=== PATIENT | female | born 1960 | race African-American/Black ===

== ENCOUNTER 2016-09-08 20:29 | Inpatient (IN) | payer MEDICAID ==
--- NOTE | 2016-09-08 21:30 | EDPRACDOC ---
- General Information Stated Complaint: UNRESPONSIVE Time Seen by Provider: 09/08/16 20:40 Information Source: [facility], [employer] Mode Of Arrival: Ambulance Home Medications: Home Medications Acetaminophen [Mapap] 650 mg PO Q6H PRN 02/29/16 Ascorbic Acid [Vitamin C] 500 mg PO BID 02/29/16 Aspirin (Enteric Coated) [Halfprin] 81 mg PO DAILY 02/29/16 Baclofen 20 mg PO QID 02/29/16 Calcium Carbonate/Vitamin D3 [Caltrate w/ Vit D Tab (600mg/400IU)] 1 tab PO BID 02/29/16 Cyanocobalamin (Vitamin B-12) [Vitamin B-12] 1,000 mcg SL WEEKLY 02/29/16 Diphenhydramine [Benadryl] 50 mg PO BID PRN 02/29/16 Docusate Sodium [Colace] 100 mg PO DAILY 02/29/16 Efavirenz/Emtricitab/Tenofovir [Atripla Tablet] 1 tab PO QHS 02/29/16 Ferrous Sulfate [Iron] 325 mg PO BID 02/29/16 Folic Acid 1 mg PO DAILY 02/29/16 Gabapentin [Neurontin] 300 mg PO BID 02/29/16 Gemfibrozil [Lopid] 600 mg PO BID 02/29/16 Lactulose [Enulose] 30 ml PO QHS 02/29/16 Multivitamin [One Daily Multivitamin] 1 tab PO DAILY 02/29/16 Pantoprazole Sodium [Protonix] 40 mg PO BID 02/29/16 Polyethylene Glycol 3350 [Miralax] 17 gm PO DAILY PRN 02/29/16 Ramelteon [Rozerem] 8 mg PO QHS 02/29/16 Sennosides [Senna] 8.6 mg PO DAILY 02/29/16 Valacyclovir HCl [Valtrex] 500 mg PO DAILY 02/29/16 Duloxetine [Cymbalta] 30 mg PO DAILY 03/21/16 Tramadol HCl 50 mg PO Q4H PRN 03/21/16 Solifenacin Succinate [Vesicare] 10 mg PO DAILY 04/01/16 Allergies/Adverse Reactions: Allergies Allergy/AdvReac Type Severity Reaction Status Date / Time amoxicillin Allergy Unknown Verified 03/21/16 08:57 ceftriaxone Allergy Unknown Verified 03/21/16 08:57 - History of Present Illness Onset: today Exact Onset of Symptoms: Unknown HPI: EMS WAS CALLED TO [place] DUE TO ALTERED MENTAL STATUS. EMS SAID THAT SHE HAS BEEN SLEEPING ALL DAY. SHE IS UNABLE TO GIVE ANY HX. THERE IS NO FAMILY WITH PT, SO I DON'T KNOW HER NL MENTAL STATUS. PER MAR, PT IS GETTING IV INVANZ. - Treatment Prior to ED Arrival Reported Medications/Treatment [facility] EMS Treatment BLS,EKG IV Yes Comment [facility] ED Past Medical History - Patient Medical History Cardiac History: Reports: Hypercholesterolemia GI/ History: Reports: Gastroesophageal Reflux Psychological History: Denies: Depression Systemic History: Reports: Anemia, HIV Additional Past Medical History: GI BLEED (SMALL BOWEL AVM), FUNCTIONAL QUAD, HSV, NEUROGENIC BLADDER Surgical History: Reports: Other (PT UNABLE TO SAY) - Family Medical History Comment Only: Hypertension (unable to rememeber), Diabetes (unable to rememeber) , Cancer (unable to rememeber), Stroke (unable to rememeber), Cardiac Disorders (unable to rememeber) - Social Medical History Smoking Status: Current status unknown Lives In: Prison [facility] EDM Review of Systems - Review of Systems ROS Unobtainable: Yes Review of systems cannot be obtained due to the patient's medical condition - Physical Exam Constitutional: Decreased Consciousness Oriented to: Not Oriented Last recorded Vital Signs: Last Vital Signs Temp Pulse 81 09/08/16 21:06 Resp 10 09/08/16 21:06 BP 107/58 L 09/08/16 21:06 Pulse Ox 98 09/08/16 21:06 Oxygen Pulse Oxygen Saturation 98 O2 Device Oxygen Flow Rate Fraction of Inspired Oxygen ( FIO2) - HEENT Head: Normal ( normocephalic) Eye Exam: Normal (PERRL, EOMI, Sclera white) Oropharynx: Membranes Dry ENT EAC: Normal TMJ: Normal Nose: No Symptoms Reported (septum midline) Neck: Normal (FROM, trachea at midline) - Respiratory/Cardiovascular Respiratory: Normal - CTA (BBS clear to auscultation without adventitious sounds ) Cardiovascular: Normal (RRR without murmur, gallop or rub) - GI Auscultation: Normal (NABS) Palpation: Normal (Soft,No rebound or guarding, non distended) Tenderness: Non tender Cornejo's Sign: Negative Rectal Exam: Heme positive stool Stool: Green, Tarry - Comments: INDWELLING ELLIOTT - Musculoskeletal Back: Normal Extremities: Other (BILATERAL FEET WITH BLACK GANGRENE) - Integumentary Lymphatics: Normal Integumentary Comment: SACRAL DECUB WITH STOOL INSIDE OF IT - Neurologic Memory Impaired: Unable to Test Motor Function: Unable to Test Cranial Nerve: Unable to Test - Results 09/08/16 21:09 09/08/16 21:09 - EKG EKG #1 EKG Time: 20:40 -: Yes EKG interpreted by me Rate: bpm: 80 [place]: Normal Rhythm: NSR Block: None Hypertrophy: None ST: Normal Comparison: 04/01/16 - Diagnostic Imaging Head Image interpreted by: Radiologist No acute intracranial process. Stable chronic changes including moderate global parenchymal brain volume loss and mild chronic small vessel ischemic disease. Chest Image interpreted by: Radiologist No acute pulmonary process. Pelvis Image interpreted by: Radiologist 1. Chronic changes as above. 2. No focal bone erosions identified. Foot Image interpreted by: Radiologist RIGHT FOOT: 1. No soft tissue gas or visible osteomyelitis. 2. Possible MTP marginal erosions which could reflect an erosive arthropathy. 3. Severe osteopenia. LEFT FOOT: Ulcer about the lateral foot with osteomyelitis of the fifth metatarsal head. - Departure Yes I personally saw and evaluated the patient. Disposition: Admit IP To This Hospital Condition: Serious Final Diagnosis: BILATERAL FOOT DRY GANGRENE, Osteomyelitis of left foot, Upper GI bleed, Small bowel arteriovenous malformation, UTI (urinary tract infection), Indwelling catheter present on admission, HIV (human immunodeficiency virus infection) Instructions: Urinary Tract Infection in Women (ED), Dysuria Education/Counseling Given Regarding: Diagnosis, Treatment Referrals: None,No Provider [Primary Care Provider] - One Week Prescriptions: No Action Aspirin (Enteric Coated) [Halfprin] 81 mg PO DAILY Diphenhydramine [Benadryl] 50 mg PO BID PRN PRN Reason: Itching Acetaminophen [Mapap] 650 mg PO Q6H PRN PRN Reason: Pain Polyethylene Glycol 3350 [Miralax] 17 gm PO DAILY PRN PRN Reason: Constipation Ramelteon [Rozerem] 8 mg PO QHS Lactulose [Enulose] 30 ml PO QHS Efavirenz/Emtricitab/Tenofovir [Atripla Tablet] 1 tab PO QHS Docusate Sodium [Colace] 100 mg PO DAILY Sennosides [Senna] 8.6 mg PO DAILY Folic Acid 1 mg PO DAILY Cyanocobalamin (Vitamin B-12) [Vitamin B-12] 1,000 mcg SL WEEKLY Baclofen 20 mg PO QID Pantoprazole Sodium [Protonix] 40 mg PO BID Ascorbic Acid [Vitamin C] 500 mg PO BID Gemfibrozil [Lopid] 600 mg PO BID Gabapentin [Neurontin] 300 mg PO BID Ferrous Sulfate [Iron] 325 mg PO BID Calcium Carbonate/Vitamin D3 [Caltrate w/ Vit D Tab (600mg/400IU)] 1 tab PO BID Valacyclovir HCl [Valtrex] 500 mg PO DAILY Multivitamin [One Daily Multivitamin] 1 tab PO DAILY Duloxetine [Cymbalta] 30 mg PO DAILY Tramadol HCl 50 mg PO Q4H PRN PRN Reason: Pain Solifenacin Succinate [Vesicare] 10 mg PO DAILY Decision to Admit Time: 23:03 Decision to admit date: 09/08/16 Decision to admit: from ED - Physician Consulted Hospitalist Provider Called: Evelin Lund
[2016-09-08 21:40] LABS: ALL NEG? NO
[2016-09-08 21:43] LABS: MPV 8.1 fL (7.4-10.4)
[2016-09-08 21:50] LABS: LEUKOCYTES/URINE 2+ (NEGATIVE); NITRITE/URINE NEG (NEGATIVE); RBC/URINE TNTC (0-5); URINE OCCULT BLOOD 3+ (NEG/TRACE); WBC/URINE TNTC (0-5)
[2016-09-08 21:52] LABS: MDMA* NEG (NEGATIVE); METHAMPHETAMINES NEG (NEGATIVE); OXYCODONE *POSITIVE* (NEGATIVE)
[2016-09-08 21:55] LABS: BLOOD UREA NITROGEN 39 MG/DL (7-17); CALC CORRECTED 10.5 MG/DL (8.4-10.2); CALCULATED OSMOLALITY 295 MOs/Kg (270-290); CHLORIDE 112 mEq/L (98-107); GLUCOSE 90 mg/dL (70-99); SODIUM LEVEL 149 mEq/L (137-146); TOTAL PROTEIN 8.1 G/DL (6.3-8.2)
--- NOTE | 2016-09-08 22:07 | DIRPT ---
CLINICAL DATA: Altered mental status, somnolent at [facility]. Only responding to pain. EXAM: CT HEAD WITHOUT CONTRAST TECHNIQUE: Contiguous axial images were obtained from the base of the skull through the vertex without intravenous contrast. COMPARISON: CT head February 29, 2016 FINDINGS: No intraparenchymal hemorrhage, mass effect, midline shift or acute large vascular territory infarcts. Moderate ventriculomegaly on the basis of global parenchymal brain volume loss. Mild white matter changes most compatible with chronic small vessel ischemic disease. RIGHT inferior basal ganglia perivascular space. No abnormal extra-axial fluid collections. Mildly dense intracranial vessels most compatible with hemoconcentration. Small RIGHT maxillary mucosal retention cyst without paranasal sinus air-fluid levels. The mastoid air cells are well aerated. No skull fracture. Ocular globes and orbital contents are normal. IMPRESSION: No acute intracranial process. Stable chronic changes including moderate global parenchymal brain volume loss and mild chronic small vessel ischemic disease. Electronically Signed By: Leola Zarate M.D. On: 09/08/2016 22:04
--- NOTE | 2016-09-08 22:15 | DIRPT ---
CLINICAL DATA: Mental status change. EXAM: PORTABLE CHEST 1 VIEW COMPARISON: 04/01/2016 FINDINGS: Mild patient rotation. The cardiomediastinal contours are normal. The lungs are clear. Pulmonary vasculature is normal. No consolidation, pleural effusion, or pneumothorax. No acute osseous abnormalities are seen. IMPRESSION: No acute pulmonary process. Electronically Signed By: Katelynn Nguyen M.D. On: 09/08/2016 22:12
[2016-09-08 22:33] LABS: SEG NEUTROPHIL 76 % (45-76); TOTAL CELL COUNT 100
[2016-09-08 22:35] LABS: PARTIAL THROMB. TIME 28.3 SEC (22-35); PT-INR 1.2
[2016-09-08] MEDS ORDERED: Vancomycin HCl 0 MG in D5W 500 ML IV ONE (22:43)
--- NOTE | 2016-09-08 22:49 | DIRPT ---
CLINICAL DATA: Left foot gangrene. EXAM: LEFT FOOT - COMPLETE 3+ VIEW COMPARISON: None. FINDINGS: Soft tissue ulcer about the lateral distal fifth metatarsal with associated decreased mineralization of the metatarsal head. No tracking soft tissue air. No radiopaque foreign body. Diffuse bony under mineralization. Multifocal degenerative change. IMPRESSION: Ulcer about the lateral foot with osteomyelitis of the fifth metatarsal head. Electronically Signed By: Katelynn Nguyen M.D. On: 09/08/2016 22:47
--- NOTE | 2016-09-08 22:51 | DIRPT ---
CLINICAL DATA: Gangrene of the the. EXAM: RIGHT FOOT COMPLETE - 3+ VIEW COMPARISON: None. FINDINGS: No visualized ulcer or soft tissue gas. Apparent marginal erosions involving the third through fifth metatarsal heads which suggests inflammatory arthropathy. No neighboring skin ulceration to suggest septic arthritis or acute osteomyelitis. Marked osteopenia. No acute fracture or dislocation. Heterotopic ossification in the lower Achilles. IMPRESSION: 1. No soft tissue gas or visible osteomyelitis. 2. Possible MTP marginal erosions which could reflect an erosive arthropathy. 3. Severe osteopenia. Electronically Signed By: Giuseppe London M.D. On: 09/08/2016 22:48
--- NOTE | 2016-09-08 22:53 | DIRPT ---
CLINICAL DATA: Decubitus ulcers EXAM: PELVIS - 1-2 VIEW COMPARISON: None FINDINGS: Bilateral hip osteoarthritis noted. There is increased sclerosis within the right femoral head which suggest AVN. No acute fractures or subluxations identified. IMPRESSION: 1. Chronic changes as above. 2. No focal bone erosions identified. Electronically Signed By: Nida Guaman M.D. On: 09/08/2016 22:50
[2016-09-08] MEDS ORDERED: GENTAMICIN 160 MG in NS 100 ML IV ONE (23:00)
[2016-09-08] MEDS ORDERED: GENTAMICIN IV SCH (23:00)
[2016-09-08] MEDS ORDERED: NS IV SCH (23:00)
[2016-09-08] MEDS ORDERED: Vancomycin HCl 0 MG in D5W 500 ML IV SCH (23:11)
[2016-09-08] MEDS ORDERED: ACETAMINOPHEN 650 MG SUPP PR PRN (23:12)
[2016-09-08] MEDS ORDERED: ONDANSETRON HCL 4 MG/2 ML VIAL IV PRN (23:12)
[2016-09-08] MEDS ORDERED: SODIUM CHLORIDE 0.9% 3 ML FLUSH FLUSH PRN (23:12)
[2016-09-08] MEDS ORDERED: Aluminum;Magnesium;Simethicone 30 ML UDC PO PRN (23:12)
[2016-09-08] MEDS ORDERED: MAGNESIUM HYDROXIDE 30 ML BOTTLE PO PRN (23:12)
[2016-09-08] MEDS ORDERED: ENOXAPARIN 40 MG/0.4 ML PFS SQ SCH (23:45)
[2016-09-09] MEDS: NS/KCl 20 mEq 1,000 ML IV SCH ×2 (00:11→11:22)
[2016-09-09] MEDS: D5W IV SCH ×4 (03:38→20:43)
[2016-09-09] MEDS: AZTREONAM IV SCH ×4 (03:38→20:43)
[2016-09-09] MEDS: Metronidazole 500 mg/100 ml 500 MG/100 ML RTU IV SCH ×4 (04:34→22:31)
[2016-09-09] MEDS: SODIUM CHLORIDE 0.9% 3 ML FLUSH FLUSH SCH ×2 (04:35→17:06)
[2016-09-09] MEDS: OXYCODONE HCL 5 MG TABLET PO SCH ×3 (04:35→20:57)
[2016-09-09] MEDS: PANTOPRAZOLE 40 MG TAB PO SCH ×2 (04:35→17:28)
[2016-09-09 05:05] LABS: MPV 8.2 fL (7.4-10.4)
[2016-09-09 05:07] LABS: AUTOMATED BASOPHIL 0.8 % (0-2); AUTOMATED LYMPH 12.4 % (17-44); AUTOMATED MONOCYTE 9.5 % (3-10); AUTOMATED NEUTROPHIL 75.3 % (45-76)
[2016-09-09 05:11] LABS: PARTIAL THROMB. TIME 28.4 SEC (22-35); PT-INR 1.2
[2016-09-09 05:21] LABS: BLOOD UREA NITROGEN 42 MG/DL (7-17); CALCIUM 9.9 MG/DL (8.4-10.2); CALCULATED OSMOLALITY 292 MOs/Kg (270-290); CHLORIDE 110 mEq/L (98-107); GLUCOSE 105 mg/dL (70-99); SODIUM LEVEL 146 mEq/L (137-146)
[2016-09-09] MEDS ORDERED: BACLOFEN 20 MG PO SCH (08:00)
--- NOTE | 2016-09-09 08:17 | HISTPHYS ---
- Chief Complaint EMS WAS CALLED TO [place] DUE TO ALTERED MENTAL STATUS. EMS SAID THAT SHE HAS BEEN SLEEPING ALL DAY. SHE IS UNABLE TO GIVE ANY HX. THERE IS NO FAMILY WITH PT, SO I DON'T KNOW HER NL MENTAL STATUS. PER MAR, PT IS GETTING IV INVANZ. - History of Present Illness 55-year-old female with multiple medical problems including HIV presents emergency department via EMS unresponsive. She is a functional quadriplegic and lives at [facility] did she was brought in because she has been sleeping all day and not waking up. Evaluation in the emergency department was extraordinarily difficult post as patient is unable to provide any history she was found to have bilateral gangrenous feet a sacral decubitus with stool in it Shaikh catheter with stool all the way up into the vagina with urine that look like pure pus she does have a history of small-bowel AVMs with chronic GI bleeding and for some reason she is on Invanz a were unable to discern why. In the emergency department she was noted to have white blood cell count of 21 a sodium of 149. Patient will be admitted into the hospital for further evaluation and management of bilateral gangrenous feet, sacral decubitus with stool, and severe catheter associated urinary tract infection. - Medical History Cardiac History: Reports: Hypercholesterolemia GI/ History: Reports: Gastroesophageal Reflux Systemic History: Reports: Anemia, HIV Psychological History: Denies: Depression - Surgical History Reports: Other (PT UNABLE TO SAY) - Medictions/Allergies Allergies amoxicillin Allergy (Verified 03/21/16 08:57) Unknown ceftriaxone Allergy (Verified 03/21/16 08:57) Unknown Current Medication List: Reviewed Home Medications Acetaminophen [Mapap] 650 mg PO Q6H PRN 02/29/16 Ascorbic Acid [Vitamin C] 500 mg PO BID 02/29/16 Aspirin (Enteric Coated) [Halfprin] 81 mg PO DAILY 02/29/16 Baclofen 20 mg PO QID 02/29/16 Calcium Carbonate/Vitamin D3 [Caltrate w/ Vit D Tab (600mg/400IU)] 1 tab PO BID 02/29/16 Cyanocobalamin (Vitamin B-12) [Vitamin B-12] 1,000 mcg SL WEEKLY 02/29/16 Diphenhydramine [Benadryl] 50 mg PO BID PRN 02/29/16 Docusate Sodium [Colace] 100 mg PO DAILY 02/29/16 Efavirenz/Emtricitab/Tenofovir [Atripla Tablet] 1 tab PO QHS 02/29/16 Ferrous Sulfate [Iron] 325 mg PO BID 02/29/16 Folic Acid 1 mg PO DAILY 02/29/16 Gabapentin [Neurontin] 300 mg PO BID 02/29/16 Gemfibrozil [Lopid] 600 mg PO BID 02/29/16 Lactulose [Enulose] 30 ml PO QHS 02/29/16 Multivitamin [One Daily Multivitamin] 1 tab PO DAILY 02/29/16 Pantoprazole Sodium [Protonix] 40 mg PO BID 02/29/16 Polyethylene Glycol 3350 [Miralax] 17 gm PO DAILY PRN 02/29/16 Ramelteon [Rozerem] 8 mg PO QHS 02/29/16 Sennosides [Senna] 8.6 mg PO DAILY 02/29/16 Valacyclovir HCl [Valtrex] 500 mg PO DAILY 02/29/16 Duloxetine [Cymbalta] 30 mg PO DAILY 03/21/16 Tramadol HCl 50 mg PO Q4H PRN 03/21/16 Solifenacin Succinate [Vesicare] 10 mg PO DAILY 04/01/16 - Family History Comment Only: Hypertension (unable to rememeber), Diabetes (unable to rememeber) , Cancer (unable to rememeber), Stroke (unable to rememeber), Cardiac Disorders (unable to rememeber) - Social History Travel Outside of US in the Last 3 Months?: No Lives: in Shelter/SNF Smoking Status: Current status unknown Social History: Denies: Alcohol Use - Review of Systems Yes Review of systems cannot be obtained due to the patient's medical condition - Physical Exam Vital Signs: Initial Vitals Pulse Rate 81 09/08/16 21:06 Respiratory Rate 10 09/08/16 21:06 Blood Pressure 107/58 L 09/08/16 21:06 Pulse Oxygen Saturation 98 09/08/16 21:06 Constitutional: Decreased Consciousness, Somnolent, Other (Patient comatose) Oriented to: Unable to Test - HEENT Head: Normal (normocephalic, atraumatic.), Other (No cervical lymphadenopathy. No supraclavicular lymphadenopathy. Neck: No palpable mass, supple , trachea midline.) Eye: Normal (pupils equal, reactive to light, and round; EOMI, Sclera white) Oropharynx: Normal (Pharynx: Moist without exudate,Gums-no swelling, No oropharyngeal lesions or erythema, Mucous membranes are dry.) Respiratory: Normal - CTA (Clear to auscultation bilaterally. No wheezing, rales , rhonchi. Chest wall movements are symmetric. No use of accessory muscles to breathe.) Cardiovascular: Normal (RRR , Normal S1, S2. No murmurs, rubs, or gallops. PMI non-displaced. Carotids: no carotid bruits. No bradycardia or tachycardia. DP pulses 2+ bilaterally.) - GI Auscultation: Normal (normal active sounds) Palpation: Normal (Soft,non distended,nontender. No hepatosplenomegaly.) Tenderness: Non tender (No rebound or guarding) Cornejo's Sign: Negative - Musculoskeletal Back: Normal (Non-Tender) Extremities: Other (Bilateral gangrenous feet) - Integumentary Skin: Other (Sacral decubitus ulcer with stool in it) - Neurologic Memory Impaired: Unable to Test Motor Function: Unable to Test Cranial Nerve: Unable to Test Cerebellar: Unable to Test Mood Description: Other (Patient comatose) Thought: Other (Patient comatose) - Focused CV Perfusion Exam Vital Signs: Last Vital Signs Temp 98.3 F 09/08/16 21:21 Pulse 83 09/08/16 22:36 Resp 14 09/08/16 22:36 BP 111/50 L 09/08/16 22:36 Pulse Ox 100 09/08/16 22:36 - Lab Results Laboratory Results - last 24 hr 09/08/16 09/08/16 09/08/16 21:00 21:00 21:09 WBC RBC Hgb Hct MCV MCH MCHC RDW Plt Count MPV Neut % (Auto) Lymph % (Auto) [place] % (Auto) Eos % (Auto) Baso % (Auto) Absolute Neuts (auto) Absolute Lymphs (auto) Seg Neuts % (Manual) Band Neutrophils % Lymphocytes % (Manual) Monocytes % (Manual) Eosinophils % (Manual) Absolute Neutrophils Absolute Lymphocytes Platelet Estimate RBC Morphology PT INR APTT Sodium 149 H Potassium 4.1 Chloride 112 H Carbon Dioxide 24 Anion Gap 17 H BUN 39 H Creatinine 1.60 H Estimated GFR (MDRD) 41 L Glucose 90 Calculated Osmolality 295 H Lactic Acid Calcium 10.0 Corrected Calcium 10.5 H Total Bilirubin 0.6 AST 24 ALT 9 Alkaline Phosphatase 185 H Troponin I < 0.01 Total Protein 8.1 Albumin 3.5 Urine Color Blood-tinged Urine Clarity Cldy Urine pH 6.0 Ur Specific Lewis 1.015 Urine Protein 3+ H Urine Glucose (UA) Neg Urine Ketones Neg Urine Occult Blood 3+ H Urine Nitrite Neg Urine Bilirubin Neg Urine Urobilinogen <2.0 Ur Leukocyte Esterase 2+ H Urine RBC Tntc H Urine WBC Tntc H Ur Epithelial Cells 2+ Urine Bacteria 4+ H Urine Mucus Mod H Urine Opiates Screen Neg Ur Oxycodone Screen *positive* H Urine Methadone Screen Neg Ur Barbiturates Screen Neg Ur Tricyclics Screen Neg Ur Phencyclidine Scrn Neg Ur Amphetamines Screen Neg U Methamphetamines Scrn Neg Urine MDMA Screen Neg U Benzodiazepines Scrn Neg Urine Cocaine Screen Neg Ur THC Screen Neg Blood Type Antibody Screen 09/08/16 09/08/16 09/08/16 21:09 21:09 21:09 WBC 21.2 H RBC 4.11 L Hgb 11.7 L Hct 36.7 MCV 89 MCH 28.6 MCHC 32.0 L RDW 15.4 H Plt Count 596 H MPV 8.1 Neut % (Auto) Cancelled Lymph % (Auto) Cancelled [place] % (Auto) Cancelled Eos % (Auto) Cancelled Baso % (Auto) Cancelled Absolute Neuts (auto) Cancelled Absolute Lymphs (auto) Cancelled Seg Neuts % (Manual) 76 Band Neutrophils % 0 Lymphocytes % (Manual) 11 L Monocytes % (Manual) 12 H Eosinophils % (Manual) 1 Absolute Neutrophils 16.11 H Absolute Lymphocytes 2.33 Platelet Estimate Inc RBC Morphology Norm PT 12.6 H INR 1.2 APTT 28.3 Sodium Potassium Chloride Carbon Dioxide Anion Gap BUN Creatinine Estimated GFR (MDRD) Glucose Calculated Osmolality Lactic Acid 0.6 L Calcium Corrected Calcium Total Bilirubin AST ALT Alkaline Phosphatase Troponin I Total Protein Albumin Urine Color Urine Clarity Urine pH Ur Specific Lewis Urine Protein Urine Glucose (UA) Urine Ketones Urine Occult Blood Urine Nitrite Urine Bilirubin Urine Urobilinogen Ur Leukocyte Esterase Urine RBC Urine WBC Ur Epithelial Cells Urine Bacteria Urine Mucus Urine Opiates Screen Ur Oxycodone Screen Urine Methadone Screen Ur Barbiturates Screen Ur Tricyclics Screen Ur Phencyclidine Scrn Ur Amphetamines Screen U Methamphetamines Scrn Urine MDMA Screen U Benzodiazepines Scrn Urine Cocaine Screen Ur THC Screen Blood Type Antibody Screen 09/08/16 21:34 WBC RBC Hgb Hct MCV MCH MCHC RDW Plt Count MPV Neut % (Auto) Lymph % (Auto) [place] % (Auto) Eos % (Auto) Baso % (Auto) Absolute Neuts (auto) Absolute Lymphs (auto) Seg Neuts % (Manual) Band Neutrophils % Lymphocytes % (Manual) Monocytes % (Manual) Eosinophils % (Manual) Absolute Neutrophils Absolute Lymphocytes Platelet Estimate RBC Morphology PT INR APTT Sodium Potassium Chloride Carbon Dioxide Anion Gap BUN Creatinine Estimated GFR (MDRD) Glucose Calculated Osmolality Lactic Acid Calcium Corrected Calcium Total Bilirubin AST ALT Alkaline Phosphatase Troponin I Total Protein Albumin Urine Color Urine Clarity Urine pH Ur Specific Lewis Urine Protein Urine Glucose (UA) Urine Ketones Urine Occult Blood Urine Nitrite Urine Bilirubin Urine Urobilinogen Ur Leukocyte Esterase Urine RBC Urine WBC Ur Epithelial Cells Urine Bacteria Urine Mucus Urine Opiates Screen Ur Oxycodone Screen Urine Methadone Screen Ur Barbiturates Screen Ur Tricyclics Screen Ur Phencyclidine Scrn Ur Amphetamines Screen U Methamphetamines Scrn Urine MDMA Screen U Benzodiazepines Scrn Urine Cocaine Screen Ur THC Screen Blood Type O POSITIVE Antibody Screen Negative - Diagnostic Findings EXAM: PELVIS - 1-2 VIEW COMPARISON: None FINDINGS: Bilateral hip osteoarthritis noted. There is increased sclerosis within the right femoral head which suggest AVN. No acute fractures or subluxations identified. IMPRESSION: 1. Chronic changes as above. 2. No focal bone erosions identified. Electronically Signed By: Nida Guaman M.D. On: 09/08/2016 22:50 EXAM: RIGHT FOOT COMPLETE - 3+ VIEW COMPARISON: None. FINDINGS: No visualized ulcer or soft tissue gas. Apparent marginal erosions involving the third through fifth metatarsal heads which suggests inflammatory arthropathy. No neighboring skin ulceration to suggest septic arthritis or acute osteomyelitis. Marked osteopenia. No acute fracture or dislocation. Heterotopic ossification in the lower Achilles. IMPRESSION: 1. No soft tissue gas or visible osteomyelitis. 2. Possible MTP marginal erosions which could reflect an erosive arthropathy. 3. Severe osteopenia. Electronically Signed By: Giuseppe London M.D. On: 09/08/2016 22:48 EXAM: CT HEAD WITHOUT CONTRAST TECHNIQUE: Contiguous axial images were obtained from the base of the skull through the vertex without intravenous contrast. COMPARISON: CT head February 29, 2016 FINDINGS: No intraparenchymal hemorrhage, mass effect, midline shift or acute large vascular territory infarcts. Moderate ventriculomegaly on the basis of global parenchymal brain volume loss. Mild white matter changes most compatible with chronic small vessel ischemic disease. RIGHT inferior basal ganglia perivascular space. No abnormal extra-axial fluid collections. Mildly dense intracranial vessels most compatible with hemoconcentration. Small RIGHT maxillary mucosal retention cyst without paranasal sinus air-fluid levels. The mastoid air cells are well aerated. No skull fracture. Ocular globes and orbital contents are normal. IMPRESSION: No acute intracranial process. Stable chronic changes including moderate global parenchymal brain volume loss and mild chronic small vessel ischemic disease. Electronically Signed By: Leola Zarate M.D. On: 09/08/2016 22:04 EXAM: LEFT FOOT - COMPLETE 3+ VIEW COMPARISON: None. FINDINGS: Soft tissue ulcer about the lateral distal fifth metatarsal with associated decreased mineralization of the metatarsal head. No tracking soft tissue air. No radiopaque foreign body. Diffuse bony under mineralization. Multifocal degenerative change. IMPRESSION: Ulcer about the lateral foot with osteomyelitis of the fifth metatarsal head. Electronically Signed By: Katelynn Nguyen M.D. On: 09/08/2016 22:47 - Assessment (1) Coma R40.20 - UNSPECIFIED COMA Acute Present on Admission: Yes Qualifiers: Coma depth: [place] coma 3-8 Coma timing: at hospital admission Qualified Code(s): R40.2433 - [place] coma scale score 3-8, at hospital admission Patient comatose likely due to infection. Will start triple antibiotics with vancomycin, aztreonam, and Flagyl. Check culture data. (2) Gangrene of toe I96 - GANGRENE, NOT ELSEWHERE CLASSIFIED Acute Present on Admission: Yes Actually patient has at least 9 gangrenous toes on his her bilateral feet. Will consult surgery for further evaluation in a.m.. (3) Sacral decubitus ulcer, stage III L89.153 - PRESSURE ULCER OF SACRAL REGION, STAGE 3 Acute Present on Admission: Yes Consult physical therapy for further evaluation and management please note that there was stool in the sacral decubitus ulcer on arrival to the emergency department this evening was cleaned out by staff. (4) Catheter-associated urinary tract infection T83.511A - I/I REACT D/T INDWELLING URETHRAL CATHETER, INIT; N39.0 - URINARY TRACT INFECTION, SITE NOT SPECIFIED Acute Present on Admission: Yes Qualifiers: Indwelling urinary catheter type: indwelling urethral catheter Encounter type: initial encounter Qualified Code(s): T83.511A - Infection and inflammatory reaction due to indwelling urethral catheter, initial encounter; N39.0 - Urinary tract infection, site not specified Patient with a filthy Shaikh catheter was stool around the got up into her vagina. The patient was cleaned in the area also was cleansed as well as changing the Shaikh catheter. (5) AVM (arteriovenous malformation) of colon with hemorrhage Q27.33 - ARTERIOVENOUS MALFORMATION OF DIGESTIVE SYSTEM VESSEL Chronic Present on Admission: Yes Patient with chronic bleeding due to a O2 serial venous malformations in her bowel. Will continue to monitor. (6) HIV (human immunodeficiency virus infection) Z21 - ASYMPTOMATIC HUMAN IMMUNODEFICIENCY VIRUS INFECTION STATUS Chronic Present on Admission: Yes Currently stable. - Plan Admit start triple IV antibiotics check culture data follow laboratory data hydrate the patient and clean her wounds. Also get surgery to see her regarding her feet. Case Care Discussed with: Consultants, Nursing Staff Total Time: 55 min Critical Care: Yes Couseling Time (>50% in counseling/coordination): No <Electronically signed by Evelin Lund MD> 09/08/16 [id number] MTDJeannie
[2016-09-09] MEDS ORDERED: CALCIUM CARBONATE PO SCH (09:00)
[2016-09-09] MEDS ORDERED: VITAMIN D3 PO SCH (09:00)
[2016-09-09] MEDS ORDERED: Non-Formulary Medication ITEM (Ferrous Sulfate [Iron] 325 MG) PO SCH (09:00)
[2016-09-09] MEDS ORDERED: [UNRECOGNIZED DRUG - OTHER] PO SCH (09:00)
[2016-09-09] MEDS ORDERED: VALACYCLOVIR HCL 500 MG CAPLET PO SCH (09:00)
[2016-09-09] MEDS ORDERED: Medication Hold Instructions SCH (10:00)
[2016-09-09] MEDS: TRIUMEQ PO SCH (10:20)
[2016-09-09] MEDS: BACLOFEN 10 MG TAB PO SCH ×4 (10:20→20:38)
[2016-09-09] MEDS: GABAPENTIN 300 MG CAP PO SCH ×2 (10:20→20:40)
[2016-09-09] MEDS: SENNA CONCENTRATE TAB PO SCH (10:20)
[2016-09-09] MEDS ORDERED: FERROUS SULFATE 324 MG TAB PO SCH (12:00)
[2016-09-09] MEDS: FOLIC ACID 1 MG TAB PO SCH (12:55)
[2016-09-09] MEDS: ASCORBIC ACID 500 MG TAB PO SCH ×2 (12:55→17:31)
[2016-09-09] MEDS: CALCIUM CARBONATE + VITAMIN D 500 MG TAB PO SCH ×2 (12:55→17:30)
[2016-09-09] MEDS: ZINC SULFATE 220 MG CAP PO SCH (12:56)
[2016-09-09] MEDS: ACYCLOVIR IV SCH ×2 (13:21→19:05)
[2016-09-09] MEDS: NS IV SCH ×2 (13:21→19:05)
[2016-09-09] MEDS ORDERED: LIDOCAINE 1% 30 ML VIAL (PRESERVATIVE FREE) ONE (14:21)
--- NOTE | 2016-09-09 15:32 | GENMEDPROG ---
Chief Complaint: Unresponsiveness Subjective Note: She is awake was slightly confused this morning, no longer comatose. Says that she has some slight abdominal discomfort, but she does not have any other specific complaints. Says that she hurts all over. Notes Reviewed: Yes: Events from last night noted and discussed with Clinical Staff Current Medication List: Reviewed DVT Prophylaxis: Yes - Physical Examination Vital Signs and I&O: Last Vital Signs Temp 98 F 09/09/16 14:32 Pulse 67 09/09/16 14:32 Resp 18 09/09/16 14:32 BP 112/57 L 09/09/16 14:32 Pulse Ox 95 09/09/16 14:32 Oxygen Pulse Oxygen Saturation 95 O2 Device Room Air Oxygen Flow Rate Fraction of Inspired Oxygen ( FIO2) Intake & Output 09/07/16 09/08/16 09/09/16 09/10/16 06:59 06:59 06:59 06:59 Intake Total 641 55 Output Total 350 600 Balance 291 -545 Patient's weight 48.166 kg 48.166 kg General: Alert, Mild distress Neck: Normal Trachea alignment, Normal inspection Lymphatics: Normal Respiratory: Normal - CTA (BBS clear to auscultation without adventitious sounds ) Cardiovascular: Regular rate, No Gallops,Rubs/Murmurs GI: Normal bowel sounds, Soft, Non tender (non distended) Extremities/Musculoskeletal: Other (Contractured, moving her bilateral upper extremities, but not her legs.) Patient is overall chronically ill in appearance, somewhat emaciated. She is speaking clearly moving her upper extremities, but not her lower. She has significant contractures in her upper and lower limbs. Her bilateral feet are suffering from very poor hygiene, and 8 or 9 of her toes have clear evidence of dry gangrene. Lab/DI/Studies Reviewed: Laboratory Tests 09/09/16 09/09/16 09/09/16 04:05 04:05 04:05 WBC 18.7 H Hgb 10.9 L Hct 34.2 L Plt Count 573 H INR 1.2 Potassium 4.2 BUN 42 H Creatinine 1.30 H - Assessment (1) Catheter-associated urinary tract infection Acute T83.511A - I/I REACT D/T INDWELLING URETHRAL CATHETER, INIT; N39.0 - URINARY TRACT INFECTION, SITE NOT SPECIFIED Qualifiers: Indwelling urinary catheter type: indwelling urethral catheter Encounter type: initial encounter Qualified Code(s): T83.511A - Infection and inflammatory reaction due to indwelling urethral catheter, initial encounter; N39.0 - Urinary tract infection, site not specified Comment/Plan: Patient with a filthy Shaikh catheter was stool around the got up into her vagina when she arrived from her rehab. The patient was cleaned in the area also was cleansed as well as changing the Shaikh catheter. Patient was started on empiric IV antibiotics, and urine cultures pending at this time. (2) Gangrene of toe Acute I96 - GANGRENE, NOT ELSEWHERE CLASSIFIED Comment/Plan: Actually patient has at least 9 gangrenous toes on his her bilateral feet. General surgery has been consulted for further evaluation. (3) HIV (human immunodeficiency virus infection) Acute Z21 - ASYMPTOMATIC HUMAN IMMUNODEFICIENCY VIRUS INFECTION STATUS (4) Osteomyelitis of left foot Acute M86.9 - OSTEOMYELITIS, UNSPECIFIED (5) Sacral decubitus ulcer, stage III Acute L89.153 - PRESSURE ULCER OF SACRAL REGION, STAGE 3 Comment/Plan: Consult physical therapy for further evaluation and management please note that there was stool in the sacral decubitus ulcer on arrival to the emergency department this evening was cleaned out by staff. - Plan Continue treatment with broad-spectrum empiric IV antibiotics, follow up on urine cultures and surgery recommendations given her foot gangrene. Case Care Discussed with: Patient, Nursing Staff Total Time: 41 Critical Care: No Couseling Time (>50% in counseling/coordination): No
--- NOTE | 2016-09-09 15:33 | PCM.SURGCO ---
Consultation Date: 09/09/16 Requesting Physician: Evelin Lund Room Service Bellhop: Rk Ponec Consult Reason: Gangrene (Of feet), Other (Sacral wound) - History of Present Illness 55-year-old female with paraplegia due to a back injury years ago. She is a resident read of [facility]. Prior to that patient states she was at [facility]. Patient has history of HIV infection. She is brought in the emergency department from EMS after being noted to be unresponsive at the group home. Evaluation in the ER was difficult. Patient reportedly had bilateral gangrenous feet and a sacral decubitus with stool in it. Reportedly was stool away up to the vagina. She according the chart has history of small bowel arteriovenous malformations and chronic GI bleeding. Patient was on Invanz. Patient emergency department was noted to have leukocytosis and sodium abnormality. Creatinine was mildly elevated also. She denies any foot pain. She denies any back pain. She complains of occasional muscle spasms due to her prior back injury. She is admitted to the hospitalist service for further evaluation and treatment. I was asked for surgical consultation for feet as well as her reported decubitus. - Past Medical and Surgical History Cardiac History: Reports: Hypercholesterolemia GI/ History: Reports: Gastroesophageal Reflux Systemic History: Reports: Anemia, HIV Psychological History: Denies: Depression Neurological History: Reports: Other Past Surgical History: Reports: Other ( Patient is unsure) Back injury with paraplegia Allergies amoxicillin Allergy (Verified 09/08/16 23:30) Unknown ceftriaxone Allergy (Verified 09/08/16 23:30) Unknown Home Medications Ascorbic Acid [Vitamin C] 500 mg PO BID 02/29/16 Baclofen 20 mg PO QID 02/29/16 Calcium Carbonate/Vitamin D3 [Caltrate w/ Vit D Tab (600mg/400IU)] 1 tab PO BID 02/29/16 Ferrous Sulfate [Iron] 325 mg PO BID 02/29/16 Folic Acid 1 mg PO DAILY 02/29/16 Gabapentin [Neurontin] 300 mg PO BID 02/29/16 Gemfibrozil [Lopid] 600 mg PO BID 02/29/16 Lactulose [Enulose] 30 ml PO QHS 02/29/16 Pantoprazole Sodium [Protonix] 40 mg PO BID 02/29/16 Polyethylene Glycol 3350 [Miralax] 17 gm PO DAILY PRN 02/29/16 Sennosides [Senna] 8.6 mg PO DAILY 02/29/16 Valacyclovir HCl [Valtrex] 500 mg PO DAILY 02/29/16 Abacavir/Dolutegravir/Lamivudi [Triumeq Tablet] 1 each PO DAILY 09/08/16 Ertapenem [Invanz] 1 gm IM DAILY 09/08/16 Hydrocodone Bit/Acetaminophen [Deer 5-325 Tablet] 1 each PO Q4H PRN 09/08/16 Magnesium Oxide [Magox] 400 mg PO DAILY 09/08/16 Oxycodone HCl [Roxicodone] 5 mg PO TID 09/08/16 Pantoprazole Sodium [Protonix] 40 mg PO DAILY 09/08/16 Zinc Sulfate 220 mg PO DAILY 09/08/16 - Social History Travel Outside of [place] in the Last 3 Months?: No Lives: Other (At [facility]) Smoking Status: Current some day smoker Social History: Denies: Alcohol Use - Family History Comment Only: Hypertension (unable to rememeber), Diabetes (unable to rememeber) , Cancer (unable to rememeber), Stroke (unable to rememeber), Cardiac Disorders (unable to rememeber) - Review of Systems Yes All systems reviewed and were negative except as marked Musculoskeletal:: Other (Muscle spasms) - Physical Exam Vital Signs: Initial Vitals Pulse Rate 81 09/08/16 21:06 Respiratory Rate 10 09/08/16 21:06 Blood Pressure 107/58 L 09/08/16 21:06 Pulse Oxygen Saturation 98 09/08/16 21:06 Exam: General: Pleasant female No acute distress. HEENT: Normocephalic atraumatic. Sclerae nonicteric. Extraocular movements intact. Oral mucosa pink and moist. Neck: Supple. Nontender. Good range of motion. No masses. Trachea is midline. No cervical adenopathy. Lungs: Clear to auscultation. No rhonchi or wheezing. Good excursion. Heart: Regular rate and rhythm. No murmurs or rubs. Abdomen: Soft, nontender, nondistended. No hepatosplenomegaly. No abdominal wall defects or masses. No guarding or rebound. Back: No CVA tenderness. No ecchymosis. There is no evidence of any sacral decubitus ulceration. There is a deep right ischial tuberosity ulceration/ decubitus which is packed. There is no surrounding erythema. There is no evidence of any undrained pus. There is no tenderness in the area. Vascular: Dorsalis pedis pulses palpable bilaterally. There is an open wound on the left foot laterally measuring 1.5 cm. Several of the toes the left foot and several of the toes of the right foot have evidence of dry gangrene which appears chronic. There is no tenderness. There is no surrounding erythema. There is no crepitus or fluctuance. Skin: Warm and dry, no jaundice. - Lab Results 09/09/16 04:05 09/09/16 04:05 Plan: A on the would access the problem list on this patient. I was asked for consultation regarding the gangrenous changes of both feet. This appears chronic in nature. The patient has palpable pulses bilaterally in the dorsalis pedis area. This may be due to small vessel disease versus shower emboli. At any rate there is nothing to do acutely. Would allow these to auto amputate. If it becomes a source of constant sepsis were pain, could consider transmetatarsal amputation. However currently these are not in my opinion causing any source of sepsis in this patient or infection in this patient. As far as her decubitus is concerned, the patient does not have a sacral decubitus. She has a chronic appearing right ischial tuberosity decubitus which is clean and being packed. Local wound care and offloading would be the norm here. Would consider packing with Aquacel Ag or another absorbent dressing daily to every other day. Would recommend treating the patient's other comorbid medical conditions. Surgical intervention is not currently indicated on the feet or the right ischial tuberosity decubitus.
--- NOTE | 2016-09-09 15:46 | DIRPT ---
CLINICAL DATA: Decubitus infection and lower extremity gangrene EXAM: PICC PLACEMENT WITH ULTRASOUND AND FLUOROSCOPY FLUOROSCOPY TIME: SIX seconds TECHNIQUE: After written informed consent was obtained, patient was placed in the supine position on angiographic table. Patency of the right brachial vein was confirmed with ultrasound with image documentation. An appropriate skin site was determined. Skin site was marked. Region was prepped using maximum barrier technique including cap and mask, sterile gown, sterile gloves, large sterile sheet, and Chlorhexidine as cutaneous antisepsis. The region was infiltrated locally with 1% lidocaine. Under real-time ultrasound guidance, the right brachial vein was accessed with a 21 gauge micropuncture needle; the needle tip within the vein was confirmed with ultrasound image documentation. Needle exchanged over a 018 guidewire for a peel-away sheath, through which a 5-Somali double-lumen power injected PICC trimmed to 37cm was advanced, positioned with its tip near the cavoatrial junction. Spot chest radiograph confirms appropriate catheter position. Catheter was flushed per protocol and secured externally with a StatLock. The patient tolerated procedure well, with no immediate complication. COMPLICATIONS: None IMPRESSION: Status post right upper extremity double-lumen PICC measuring 27 cm 37 cm. Catheter ready for use. Signed, Kwaku Herrera DO [facility] Electronically Signed By: Kwaku Herrera D.O. On: 09/09/2016 15:44
[2016-09-09] MEDS: ENOXAPARIN 40 MG/0.4 ML PFS SQ SCH (17:34)
[2016-09-09] MEDS ORDERED: ENOXAPARIN 30 MG/0.3 ML PFS SQ SCH (18:00)
[2016-09-09] MEDS: FERROUS SULFATE 300 MG/5 ML PO SCH (18:15)
[2016-09-09] MEDS: LACTULOSE 20 GM/30 ML ORAL SOLN PO SCH (20:36)
[2016-09-09] MEDS ORDERED: LACTULOSE PO SCH (21:00)
[2016-09-10] MEDS: NS/KCl 20 mEq 1,000 ML IV SCH (00:27)
[2016-09-10] MEDS: NS IV SCH ×3 (03:14→20:10)
[2016-09-10] MEDS: ACYCLOVIR IV SCH ×3 (03:14→20:10)
[2016-09-10] MEDS: D5W IV SCH ×3 (05:15→21:49)
[2016-09-10] MEDS: AZTREONAM IV SCH ×3 (05:15→21:49)
[2016-09-10] MEDS: PANTOPRAZOLE 40 MG TAB PO SCH ×2 (05:20→17:22)
[2016-09-10] MEDS: SODIUM CHLORIDE 0.9% 3 ML FLUSH FLUSH SCH ×2 (05:20→17:18)
[2016-09-10] MEDS: OXYCODONE HCL 5 MG TABLET PO SCH ×3 (05:20→20:18)
[2016-09-10 07:08] LABS: BLOOD UREA NITROGEN 24 MG/DL (7-17); CALCIUM 9.2 MG/DL (8.4-10.2); CALCULATED OSMOLALITY 271 MOs/Kg (270-290); CHLORIDE 109 mEq/L (98-107); GLUCOSE 85 mg/dL (70-99); SODIUM LEVEL 139 mEq/L (137-146)
[2016-09-10] MEDS: Metronidazole 500 mg/100 ml 500 MG/100 ML RTU IV SCH ×3 (08:41→23:25)
[2016-09-10] MEDS: BACLOFEN 10 MG TAB PO SCH ×4 (08:42→20:18)
[2016-09-10] MEDS: TRIUMEQ PO SCH (08:42)
[2016-09-10] MEDS: GABAPENTIN 300 MG CAP PO SCH ×2 (08:42→20:19)
[2016-09-10] MEDS: SENNA CONCENTRATE TAB PO SCH (08:46)
--- NOTE | 2016-09-10 10:21 | GENMEDPROG ---
Chief Complaint: UTI, sacral wound, ischemic toes Subjective Note: She is doing well, she is wide awake and alert today and conversant. She has no acute complaints. Notes Reviewed: Yes: Events from last night noted and discussed with Clinical Staff Current Medication List: Reviewed DVT Prophylaxis: Yes - Physical Examination Vital Signs and I&O: Last Vital Signs Temp 98.6 F 09/10/16 04:12 Pulse 69 09/10/16 04:12 Resp 18 09/10/16 04:12 BP 107/55 L 09/10/16 04:12 Pulse Ox 98 09/10/16 04:12 Oxygen Pulse Oxygen Saturation 98 O2 Device Room Air Oxygen Flow Rate Fraction of Inspired Oxygen ( FIO2) Intake & Output 09/08/16 09/09/16 09/10/16 09/11/16 06:59 06:59 06:59 06:59 Intake Total 641 2000 614 Output Total 350 1150 450 Balance 291 850 164 Patient's weight 48.166 kg 48.308 kg General: Alert, Mild distress Neck: Normal Trachea alignment, Normal inspection Lymphatics: Normal Respiratory: Normal - CTA (BBS clear to auscultation without adventitious sounds ) Cardiovascular: Regular rate, No Gallops,Rubs/Murmurs GI: Normal bowel sounds, Soft, Non tender (non distended) Extremities/Musculoskeletal: Other (Contractured, moving her bilateral upper extremities, but not her legs.) Lab/DI/Studies Reviewed: Laboratory Tests 09/09/16 09/09/16 09/10/16 04:05 04:05 06:10 WBC 18.7 H Hgb 10.9 L Hct 34.2 L INR 1.2 Potassium 3.5 Chloride 109 H Creatinine 1.00 - Assessment (1) Catheter-associated urinary tract infection Acute T83.511A - I/I REACT D/T INDWELLING URETHRAL CATHETER, INIT; N39.0 - URINARY TRACT INFECTION, SITE NOT SPECIFIED Qualifiers: Indwelling urinary catheter type: indwelling urethral catheter Encounter type: initial encounter Qualified Code(s): T83.511A - Infection and inflammatory reaction due to indwelling urethral catheter, initial encounter; N39.0 - Urinary tract infection, site not specified Comment/Plan: Patient with a filthy Shaikh catheter was stool around the got up into her vagina when she arrived from her rehab. The patient was cleaned in the area also was cleansed as well as changing the Shaikh catheter. Patient was started on empiric IV antibiotics, and urine cultures pending at this time. (2) Gangrene of toe Acute I96 - GANGRENE, NOT ELSEWHERE CLASSIFIED Comment/Plan: Actually patient has at least 9 gangrenous toes on his her bilateral feet. General surgery has been consulted for further evaluation, feel this is likely vascular nature see no signs or symptoms of infection, which I agree with. Currently not any acute surgical intervention required. (3) HIV (human immunodeficiency virus infection) Acute Z21 - ASYMPTOMATIC HUMAN IMMUNODEFICIENCY VIRUS INFECTION STATUS (4) Osteomyelitis of left foot Acute M86.9 - OSTEOMYELITIS, UNSPECIFIED (5) Sacral decubitus ulcer, stage III Acute L89.153 - PRESSURE ULCER OF SACRAL REGION, STAGE 3 Comment/Plan: Wound Care has been consulted, these are not sacral ulcers, but felt to be an ulceration over the right ischial tuberosity. Seen by General surgery, who recommend every other day packing and close wound care. - Plan Patient seems to be improving overall, with the treatment of her urinary tract infection. Continue to treat empirically and follow up on urine cultures.
[2016-09-10] MEDS: FOLIC ACID 1 MG TAB PO SCH (11:49)
[2016-09-10] MEDS: FERROUS SULFATE 300 MG/5 ML PO SCH ×2 (11:50→17:16)
[2016-09-10] MEDS: CALCIUM CARBONATE + VITAMIN D 500 MG TAB PO SCH ×2 (11:50→17:16)
[2016-09-10] MEDS: ZINC SULFATE 220 MG CAP PO SCH (11:50)
[2016-09-10] MEDS: ASCORBIC ACID 500 MG TAB PO SCH ×2 (11:51→17:16)
--- NOTE | 2016-09-10 12:50 | PCM.SURGRO ---
- Subjective Chief Complaint: muscle pain Hospital Day #: 2 (gangrene of digits of bilateral lower extremities.) Patient: Reports: No new complaints, Afebrile. Denies: Voiding without difficulty (Shaikh catheter in.), Blood in Stool (None recorded), Nausea, Vomiting, Shortness of breath, Ambulating - Objective / Physical Exam Vital Signs: Temperature: 98.6 F (09/10/16 04:12) HR: 69 (09/10/16 04:12)RR: 18 (09/10/16 04: 12) BP: 107/55 (09/10/16 04:12)Pulse Ox: 98 (09/10/16 04:12) General: Alert, Cooperative, No acute distress HEENT: Normal Respiratory: Normal - CTA Cardiovascular: Regular rate and rhythm Gastrointestinal: Soft. negative: Distended Extremities: Normal pulses (+2/4 dorsalis pedis pulses of the bilateral lower extremities.), Other (There is black discoloration to a portion of all ten digits of the bilateral lower extremities.). negative: Swelling, Edema Psych/Mental Status: Cooperative. negative: Agitated, Anxious Neurological: Normal speech - Assessment and Plan (1) Gangrene of toe Acute I96 - GANGRENE, NOT ELSEWHERE CLASSIFIED Present on Admission: Yes Comment/Plan: The patient appears to have dry gangrene of the distal aspects of the digits of the bilateral lower extremities. I have discussed with Dr. Ponce. These digits do not appear to be a source of sepsis. Plan is for autoamputation. No indication for acute surgical intervention at this time.
[2016-09-10] MEDS ORDERED: CHAPSTICK LIP BALM ONE (14:18)
[2016-09-10] MEDS: ENOXAPARIN 40 MG/0.4 ML PFS SQ SCH (17:17)
[2016-09-10] MEDS: LACTULOSE 20 GM/30 ML ORAL SOLN PO SCH ×2 (20:18→21:36)
[2016-09-10] MEDS: HYDROCODONE 5 MG/ACETAMIN 325 MG TAB PO PRN (23:50)
[2016-09-11] MEDS: NS IV SCH (03:59)
[2016-09-11] MEDS: ACYCLOVIR IV SCH (03:59)
[2016-09-11] MEDS: SODIUM CHLORIDE 0.9% 3 ML FLUSH FLUSH SCH ×2 (05:15→17:07)
[2016-09-11] MEDS: PANTOPRAZOLE 40 MG TAB PO SCH ×2 (06:35→17:07)
[2016-09-11] MEDS: OXYCODONE HCL 5 MG TABLET PO SCH ×3 (06:35→21:37)
[2016-09-11] MEDS: AZTREONAM IV SCH (06:35)
[2016-09-11] MEDS: D5W IV SCH (06:35)
[2016-09-11] MEDS: Metronidazole 500 mg/100 ml 500 MG/100 ML RTU IV SCH ×3 (08:31→23:44)
[2016-09-11] MEDS: TRIUMEQ PO SCH (08:33)
[2016-09-11] MEDS: GABAPENTIN 300 MG CAP PO SCH ×2 (08:34→21:35)
[2016-09-11] MEDS: BACLOFEN 10 MG TAB PO SCH ×4 (08:34→21:34)
[2016-09-11] MEDS: SENNA CONCENTRATE TAB PO SCH (08:35)
--- NOTE | 2016-09-11 10:58 | GENMEDPROG ---
Chief Complaint: Decreased responsiveness, concern for urinary tract infection Subjective Note: Resting comfortably this morning, she has no acute complaints and is feeling nearly back to her baseline health. She wants to eat. Notes Reviewed: Yes: Events from last night noted and discussed with Clinical Staff Current Medication List: Reviewed DVT Prophylaxis: Yes - Physical Examination Vital Signs and I&O: Last Vital Signs Temp 98.7 F 09/11/16 06:20 Pulse 66 09/11/16 06:20 Resp 18 09/11/16 06:20 BP 120/56 L 09/11/16 06:20 Pulse Ox 98 09/11/16 07:51 Oxygen Pulse Oxygen Saturation 98 O2 Device Room Air Oxygen Flow Rate Fraction of Inspired Oxygen ( FIO2) Intake & Output 09/09/16 09/10/16 09/11/16 09/12/16 06:59 06:59 06:59 06:59 Intake Total 641 2000 3352 247 Output Total 350 1150 3750 Balance 291 850 -398 247 Patient's weight 48.166 kg 48.308 kg 49.442 kg General: Alert, Cooperative, No acute distress HEENT: Normal Respiratory: Normal - CTA Cardiovascular: Regular rate and rhythm Extremities/Musculoskeletal: Normal pulses (+2/4 dorsalis pedis pulses of the bilateral lower extremities.), Other (There is black discoloration to a portion of all ten digits of the bilateral lower extremities.). negative: Swelling, Edema Psych/Mental Status: Cooperative. negative: Agitated, Anxious Lab/DI/Studies Reviewed: Laboratory Tests 09/09/16 09/10/16 04:05 06:10 WBC 18.7 H Potassium 3.5 BUN 24 H Creatinine 1.00 - Assessment (1) Catheter-associated urinary tract infection Acute T83.511A - I/I REACT D/T INDWELLING URETHRAL CATHETER, INIT; N39.0 - URINARY TRACT INFECTION, SITE NOT SPECIFIED Qualifiers: Indwelling urinary catheter type: indwelling urethral catheter Encounter type: initial encounter Qualified Code(s): T83.511A - Infection and inflammatory reaction due to indwelling urethral catheter, initial encounter; N39.0 - Urinary tract infection, site not specified Comment/Plan: Patient with a filthy Shaikh catheter was stool around the got up into her vagina when she arrived from her rehab. The patient was cleaned in the area also was cleansed as well as changing the Shaikh catheter. Patient was started on empiric IV antibiotics, but urine cultures with no growth. Since she did have a leukocytosis at the time of admission, I will narrow antibiotics from the broad-spectrum that she started on, and treat her empirically with IV Levaquin 500 IV Q 24 hours. (2) Gangrene of toe Acute I96 - GANGRENE, NOT ELSEWHERE CLASSIFIED Comment/Plan: Actually patient has at least 9 gangrenous toes on his her bilateral feet. General surgery has been consulted for further evaluation, feel this is likely vascular nature see no signs or symptoms of infection, which I agree with. Currently not any acute surgical intervention required. (3) HIV (human immunodeficiency virus infection) Acute Z21 - ASYMPTOMATIC HUMAN IMMUNODEFICIENCY VIRUS INFECTION STATUS (4) Osteomyelitis of left foot Acute M86.9 - OSTEOMYELITIS, UNSPECIFIED (5) Sacral decubitus ulcer, stage III Acute L89.153 - PRESSURE ULCER OF SACRAL REGION, STAGE 3 Comment/Plan: Wound Care has been consulted, these are not sacral ulcers, but felt to be an ulceration over the right ischial tuberosity. Seen by General surgery, who recommend every other day packing and close wound care. - Plan She is stable and improving. Since her mental status improved, she can have a diet today. Discussed with nursing staff. Narrowing antibiotics significantly , to an agent that she can take orally at discharge if he is stable. If she is clinically stable without fevers, and her white count continues to improve, I feel that she can likely be discharged back to her nursing facility in the next 24-48 hours on empiric Levaquin therapy.
[2016-09-11] MEDS: Levofloxacin 500 mg/100 ml D5W 500 MG/100 ML RTU IV SCH (11:24)
[2016-09-11] MEDS: FOLIC ACID 1 MG TAB PO SCH (11:25)
[2016-09-11] MEDS: FERROUS SULFATE 300 MG/5 ML PO SCH ×2 (11:25→17:06)
[2016-09-11] MEDS: CALCIUM CARBONATE + VITAMIN D 500 MG TAB PO SCH ×2 (11:25→17:06)
[2016-09-11] MEDS: ZINC SULFATE 220 MG CAP PO SCH (11:26)
[2016-09-11] MEDS: ASCORBIC ACID 500 MG TAB PO SCH ×2 (11:26→17:06)
--- NOTE | 2016-09-11 13:36 | PCM.SURGRO ---
- Subjective Chief Complaint: [facility] [place] [facility] Day #: 4 (dry gangrene of digits of bilateral lower extremities) Patient: Reports: No new complaints, Other (Patient currently working with the speech therapist.) - Objective / Physical Exam Vital Signs: Temperature: 98.7 F (09/11/16 06:20) HR: 66 (09/11/16 06:20)RR: 18 (09/11/16 06: 20) BP: 120/56 (09/11/16 06:20)Pulse Ox: 98 (09/11/16 07:51) General: Alert, Cooperative, No acute distress HEENT: Normal Respiratory: Normal - CTA Cardiovascular: Regular rate and rhythm Gastrointestinal: Soft. negative: Distended Extremities: Normal pulses, Other (The black disoloration of the digits has not changed compared to prior examinations. There are no fluctuant masses. No evidence of abscess or infection.). negative: Swelling, Edema Psych/Mental Status: Cooperative. negative: Agitated, Anxious - Assessment and Plan (1) Gangrene of toe Acute I96 - GANGRENE, NOT ELSEWHERE CLASSIFIED Present on Admission: Yes Comment/Plan: There has been no change in the examination. We will continue to monitor. No indication for surgical intervention at this time. I discussed the treatment plan with the patient.
[2016-09-11] MEDS ORDERED: Vaccine Screening Complete SCH (14:00)
[2016-09-11] MEDS: ENOXAPARIN 40 MG/0.4 ML PFS SQ SCH (17:06)
[2016-09-11] MEDS: LACTULOSE 20 GM/30 ML ORAL SOLN PO SCH (21:34)
[2016-09-11] MEDS: HYDROCODONE 5 MG/ACETAMIN 325 MG TAB PO PRN (21:38)
[2016-09-12] MEDS: HYDROCODONE 5 MG/ACETAMIN 325 MG TAB PO PRN (01:52)
[2016-09-12] MEDS: OXYCODONE HCL 5 MG TABLET PO SCH ×3 (05:44→20:47)
[2016-09-12] MEDS: SODIUM CHLORIDE 0.9% 3 ML FLUSH FLUSH SCH ×2 (05:45→17:24)
[2016-09-12] MEDS: PANTOPRAZOLE 40 MG TAB PO SCH ×2 (05:45→17:24)
[2016-09-12 07:14] LABS: MPV 7.2 fL (7.4-10.4)
--- NOTE | 2016-09-12 08:10 | PCM.SURGRO ---
- Subjective Chief Complaint: Says she is not resting well. Denies foot pain. - Objective / Physical Exam Vital Signs: Temperature: 98.2 F (09/12/16 05:00) HR: 62 (09/12/16 05:00)RR: 20 (09/12/16 05: 00) BP: 95/60 (09/12/16 05:00)Pulse Ox: 96 (09/12/16 05:00) Respiratory: Normal - CTA Cardiovascular: Regular rate and rhythm Gastrointestinal: Soft, Bowel Sounds. negative: Distended, Tender Extremities: Other (Chronic dry gangrenous changes of toes of both feet noted, unchanged. Dry wound left lateral foot noted. No erythema. No tenderness. No purulence. No crepitus.) - Assessment and Plan (1) Gangrene of toe Chronic I96 - GANGRENE, NOT ELSEWHERE CLASSIFIED Present on Admission: Yes Comment/Plan: Dry gangrenous changes of toes of both feet. Multifactorial in nature. She has palpable pedal pulses. The toes may demarcate and possibly auto amputate. If they become a source of pain and/or sepsis, could consider transmetatarsal amputation or an amputation further up the leg on each side. Currently the patient does not require acute surgical intervention for the dry gangrenous changes of her toes. (2) Decubitus ulcer of right ischial tuberosity region Chronic L89.319 - PRESSURE ULCER OF RIGHT BUTTOCK, UNSPECIFIED STAGE Present on Admission: Yes Comment/Plan: Local wound care to ischial tuberosity. This is chronic in nature and may never heal. Offloading is a necessity.
[2016-09-12] MEDS: Metronidazole 500 mg/100 ml 500 MG/100 ML RTU IV SCH ×2 (09:09→16:22)
[2016-09-12] MEDS: BACLOFEN 10 MG TAB PO SCH ×4 (09:10→20:47)
[2016-09-12] MEDS: GABAPENTIN 300 MG CAP PO SCH ×2 (09:11→20:47)
[2016-09-12] MEDS: TRIUMEQ PO SCH (09:11)
[2016-09-12] MEDS: VALACYCLOVIR HCL 500 MG CAPLET PO SCH (09:12)
[2016-09-12] MEDS: SENNA CONCENTRATE TAB PO SCH (09:12)
[2016-09-12] MEDS: Levofloxacin 500 mg/100 ml D5W 500 MG/100 ML RTU IV SCH (12:25)
[2016-09-12] MEDS: CALCIUM CARBONATE + VITAMIN D 500 MG TAB PO SCH ×2 (12:26→17:24)
[2016-09-12] MEDS: ZINC SULFATE 220 MG CAP PO SCH (12:27)
[2016-09-12] MEDS: ASCORBIC ACID 500 MG TAB PO SCH ×2 (12:27→17:24)
[2016-09-12] MEDS: FOLIC ACID 1 MG TAB PO SCH (12:27)
[2016-09-12] MEDS: FERROUS SULFATE 300 MG/5 ML PO SCH ×2 (12:31→17:24)
[2016-09-12 13:41] VITALS: BMI 17.8
--- NOTE | 2016-09-12 15:53 | GENMEDPROG ---
Subjective Note: Patient in bed responsive follows commands. Denies and difficulties breathing cough or phlegm production. Tolerating diet. Notes Reviewed: Yes: Events from last night noted and discussed with Clinical Staff Current Medication List: Reviewed Currently: Reports: Cough, Sputum, Tobacco Use/Hx, Reflux Sx DVT Prophylaxis: Yes - Physical Examination Vital Signs and I&O: Last Vital Signs Temp 98.9 F 09/12/16 13:44 Pulse 60 09/12/16 13:44 Resp 18 09/12/16 13:44 BP 100/60 09/12/16 13:44 Pulse Ox 100 09/12/16 13:44 Oxygen Pulse Oxygen Saturation 100 O2 Device Room Air Oxygen Flow Rate Fraction of Inspired Oxygen ( FIO2) Intake & Output 09/09/16 09/10/16 09/11/16 09/12/16 23:59 23:59 23:59 23:59 Intake Total 1186 3647 2357 1031 Output Total 1300 2600 2650 600 Balance -114 1047 -293 431 Patient's weight 48.166 kg 48.308 kg 49.442 kg 50.122 kg General: Alert, Oriented x3, Cooperative, No acute distress HEENT: Normal, PERRLA, EOMI, Anicteric Sclera Neck: Non-tender, Limited range of motion Lymphatics: Normal Respiratory: Normal - CTA, Diminished, Rhonchi Cardiovascular: Regular rate and rhythm, Normal S1, Normal S2 GI: Normal bowel sounds, Soft, Non tender, No hepatospenomegaly, No masses Extremities/Musculoskeletal: Other (Chronic dry gangrenous changes of toes of both feet noted, unchanged. Dry wound left lateral foot noted. No erythema. No tenderness. No purulence. No crepitus.) Skin: No significant lesion Neurological: Normal speech, Cranial nerves 3-12 NL Psych/Mental Status: Anxious Lab/DI/Studies Reviewed: Allergies amoxicillin Allergy (Verified 09/08/16 23:30) Unknown ceftriaxone Allergy (Verified 09/08/16 23:30) Unknown 09/12/16 07:04 09/10/16 06:10 Abnormal Lab Results 09/12/16 07:04 RBC 3.16 L Hgb 9.2 L D Hct 28.2 L MCHC 32.8 L RDW 14.6 H Plt Count 511 H MPV 7.2 L - Assessment (1) Catheter-associated urinary tract infection Acute T83.511A - I/I REACT D/T INDWELLING URETHRAL CATHETER, INIT; N39.0 - URINARY TRACT INFECTION, SITE NOT SPECIFIED Qualifiers: Indwelling urinary catheter type: indwelling urethral catheter Encounter type: initial encounter Qualified Code(s): T83.511A - Infection and inflammatory reaction due to indwelling urethral catheter, initial encounter; N39.0 - Urinary tract infection, site not specified Comment/Plan: Shaikh catheter has been change, patient is receiving antibiotics. Urine culture shows no growth (2) Gangrene of toe Chronic I96 - GANGRENE, NOT ELSEWHERE CLASSIFIED Comment/Plan: Dry gangrene of multiple toes. Continue local care, follow by surgery. (3) Sacral decubitus ulcer, stage III Acute L89.153 - PRESSURE ULCER OF SACRAL REGION, STAGE 3 Comment/Plan: Continue local wound care and pressure relief. (4) Debility Acute R53.81 - OTHER MALAISE Comment/Plan: asisst with adls and transfers. Case Care Discussed with: Patient, Nursing Staff, Social Welfare Administrator Education/Counseling Given To: Patient Education/Counseling Given Regarding: Diagnosis, Treatment, Prognosis, Follow Up Total Time: 45 min . Critical Care: No Code: 30146 (12+)
[2016-09-12] MEDS: ENOXAPARIN 40 MG/0.4 ML PFS SQ SCH (17:24)
[2016-09-12] MEDS: LACTULOSE 20 GM/30 ML ORAL SOLN PO SCH ×2 (20:47→20:49)
[2016-09-13] MEDS: Metronidazole 500 mg/100 ml 500 MG/100 ML RTU IV SCH ×4 (00:26→23:03)
[2016-09-13] MEDS: OXYCODONE HCL 5 MG TABLET PO SCH ×3 (05:21→20:15)
[2016-09-13] MEDS: PANTOPRAZOLE 40 MG TAB PO SCH ×2 (05:22→17:19)
[2016-09-13] MEDS: SODIUM CHLORIDE 0.9% 3 ML FLUSH FLUSH SCH ×2 (05:22→17:18)
[2016-09-13 06:37] LABS: MPV 7.6 fL (7.4-10.4)
--- NOTE | 2016-09-13 07:55 | PCM.SURGRO ---
- Subjective Patient: Reports: No new complaints. Denies: Shortness of breath - Objective / Physical Exam Vital Signs: Temperature: 98.5 F (09/13/16 05:46) HR: 60 (09/13/16 05:46)RR: 20 (09/13/16 05: 46) BP: 100/43 (09/13/16 05:46)Pulse Ox: 96 (09/13/16 05:46) General: Alert Respiratory: Normal - CTA Cardiovascular: Regular rate and rhythm Gastrointestinal: Soft, Bowel Sounds. negative: Distended, Tender Extremities: Other (Palpable dorsalis pedis pulse bilaterally, chronic dry gangrene of several toes on each foot, no crepitus, no fluctuance, no tenderness ) - Assessment and Plan (1) Gangrene of toe Chronic I96 - GANGRENE, NOT ELSEWHERE CLASSIFIED Present on Admission: Yes Comment/Plan: Continue to monitor. No indication for acute surgical intervention. She has palpable pulses in her feet. (2) Decubitus ulcer of right ischial tuberosity region Chronic L89.319 - PRESSURE ULCER OF RIGHT BUTTOCK, UNSPECIFIED STAGE Present on Admission: Yes Comment/Plan: Continue offloading. Continue local wound care.
[2016-09-13] MEDS: SENNA CONCENTRATE TAB PO SCH (08:04)
[2016-09-13] MEDS: BACLOFEN 10 MG TAB PO SCH ×4 (08:04→20:15)
[2016-09-13] MEDS: TRIUMEQ PO SCH (08:04)
[2016-09-13] MEDS: VALACYCLOVIR HCL 500 MG CAPLET PO SCH (08:04)
[2016-09-13] MEDS: GABAPENTIN 300 MG CAP PO SCH ×2 (08:05→20:16)
[2016-09-13] MEDS: FERROUS SULFATE 300 MG/5 ML PO SCH ×2 (11:16→17:18)
[2016-09-13] MEDS: ZINC SULFATE 220 MG CAP PO SCH (11:17)
[2016-09-13] MEDS: CALCIUM CARBONATE + VITAMIN D 500 MG TAB PO SCH ×2 (11:17→17:19)
[2016-09-13] MEDS: Levofloxacin 500 mg/100 ml D5W 500 MG/100 ML RTU IV SCH (11:17)
[2016-09-13] MEDS: ASCORBIC ACID 500 MG TAB PO SCH ×2 (11:17→17:19)
[2016-09-13] MEDS: FOLIC ACID 1 MG TAB PO SCH (11:17)
[2016-09-13] MEDS: ENOXAPARIN 40 MG/0.4 ML PFS SQ SCH (17:19)
--- NOTE | 2016-09-13 17:38 | GENMEDPROG ---
Subjective Note: Patient in bed responsive follows command. Pain control. Denies and difficulties breathing cough or phlegm production. Tolerating diet. Notes Reviewed: Yes: Events from last night noted and discussed with Clinical Staff Currently: Reports: Cough, Sputum, Tobacco Use/Hx, Reflux Sx DVT Prophylaxis: Yes - Physical Examination Vital Signs and I&O: Last Vital Signs Temp 99.4 F 09/13/16 14:50 Pulse 68 09/13/16 14:50 Resp 18 09/13/16 14:50 BP 100/46 L 09/13/16 14:50 Pulse Ox 96 09/13/16 14:50 Oxygen Pulse Oxygen Saturation 96 O2 Device Room Air Oxygen Flow Rate Fraction of Inspired Oxygen ( FIO2) Intake & Output 09/10/16 09/11/16 09/12/16 09/13/16 23:59 23:59 23:59 23:59 Intake Total 3647 2357 2068 907 Output Total 2600 2650 850 1600 Balance 1047 293 1218 693 Patient's weight 48.308 kg 49.442 kg 50.122 kg 50.15 kg General: Alert, Oriented x3, Cooperative, No acute distress HEENT: Normal, PERRLA, EOMI, Anicteric Sclera Neck: Non-tender, Normal Trachea alignment, Limited range of motion Lymphatics: Normal Respiratory: Normal - CTA, Diminished, Rhonchi Cardiovascular: Regular rate and rhythm, Normal S1, Normal S2, Murmurs GI: Normal bowel sounds, Soft, Non tender, No hepatospenomegaly, No masses Extremities/Musculoskeletal: DJD, Other (Palpable dorsalis pedis pulse bilaterally, chronic dry gangrene of several toes on each foot, no crepitus, no fluctuance, no tenderness). negative: Muscle Tone Skin: No rashes Neurological: Normal speech, Cranial nerves 3-12 NL Psych/Mental Status: Anxious Lab/DI/Studies Reviewed: Allergies amoxicillin Allergy (Verified 09/08/16 23:30) Unknown ceftriaxone Allergy (Verified 09/08/16 23:30) Unknown 09/13/16 06:11 09/10/16 06:10 - Assessment (1) Catheter-associated urinary tract infection Acute T83.511A - I/I REACT D/T INDWELLING URETHRAL CATHETER, INIT; N39.0 - URINARY TRACT INFECTION, SITE NOT SPECIFIED Qualifiers: Indwelling urinary catheter type: indwelling urethral catheter Encounter type: initial encounter Qualified Code(s): T83.511A - Infection and inflammatory reaction due to indwelling urethral catheter, initial encounter; N39.0 - Urinary tract infection, site not specified Comment/Plan: Shaikh catheter has been change, patient is receiving antibiotics. Urine culture shows no growth (2) Gangrene of toe Chronic I96 - GANGRENE, NOT ELSEWHERE CLASSIFIED Comment/Plan: Dry gangrene of multiple toes. Continue local care, follow by surgery. No indications for surgical intervention (3) Sacral decubitus ulcer, stage III Acute L89.153 - PRESSURE ULCER OF SACRAL REGION, STAGE 3 Comment/Plan: Continue local wound care and pressure relief. (4) Debility Acute R53.81 - OTHER MALAISE Comment/Plan: asisst with adls and transfers. Case Care Discussed with: Patient, Nursing Staff, Jointer Machine Operator Education/Counseling Given To: Patient Education/Counseling Given Regarding: Diagnosis, Treatment, Prognosis, Follow Up Total Time: 45 min. Critical Care: No Code: 94588 (12+)
[2016-09-13] MEDS: LACTULOSE 20 GM/30 ML ORAL SOLN PO SCH (20:15)
[2016-09-14 04:15] VITALS: BP 117/51; PULSE 66; TEMP 99
[2016-09-14] MEDS: OXYCODONE HCL 5 MG TABLET PO SCH (05:27)
[2016-09-14] MEDS: SODIUM CHLORIDE 0.9% 3 ML FLUSH FLUSH SCH (05:27)
[2016-09-14] MEDS: PANTOPRAZOLE 40 MG TAB PO SCH (05:27)
[2016-09-14 07:34] LABS: MPV 7.6 fL (7.4-10.4)
[2016-09-14] MEDS: VALACYCLOVIR HCL 500 MG CAPLET PO SCH (08:25)
[2016-09-14] MEDS: BACLOFEN 10 MG TAB PO SCH (08:25)
[2016-09-14] MEDS: GABAPENTIN 300 MG CAP PO SCH (08:25)
[2016-09-14] MEDS: SENNA CONCENTRATE TAB PO SCH (08:25)
[2016-09-14] MEDS: Metronidazole 500 mg/100 ml 500 MG/100 ML RTU IV SCH (08:25)
[2016-09-14] MEDS: TRIUMEQ PO SCH (08:26)
--- NOTE | 2016-09-14 08:59 | PCM.DCS92 ---
- Final/Secondary Discharge Diagnosis (1) Catheter-associated urinary tract infection Resolved T83.511A - I/I REACT D/T INDWELLING URETHRAL CATHETER, INIT; N39.0 - URINARY TRACT INFECTION, SITE NOT SPECIFIED Present on Admission: Yes indwelling urethral catheter initial encounter T83.511A - Infection and inflammatory reaction due to indwelling urethral catheter, initial encounter; N39.0 - Urinary tract infection, site not specified Comment: Shaikh catheter has been change, patient is receiving antibiotics. Urine culture shows no growth (2) Gangrene of toe Chronic I96 - GANGRENE, NOT ELSEWHERE CLASSIFIED Present on Admission: Yes Comment: Dry gangrene of multiple toes. Continue local care, follow by surgery. No indications for surgical intervention (3) Sacral decubitus ulcer, stage III Chronic L89.153 - PRESSURE ULCER OF SACRAL REGION, STAGE 3 Present on Admission: Yes Comment: Continue local wound care and pressure relief. (4) Debility Acute R53.81 - OTHER MALAISE Present on Admission: Yes Comment: asisst with adls and transfers. (5) HIV (human immunodeficiency virus infection) Chronic Z21 - ASYMPTOMATIC HUMAN IMMUNODEFICIENCY VIRUS INFECTION STATUS Present on Admission: Yes Comment: Currently stable. [facility] Discharge Condition: Improved Cognitive Discharge Status: Unimpaired Fuctional Discharge Status: Wheelchair Assistance, Fall Risk Physician Follow up/Referrals: None,No Provider [Family Provider] - One Week Kiesha Butler MD [NonStaff] - One Week Home Medications / New Prescriptions: Continue Polyethylene Glycol 3350 [Miralax] 17 gm PO DAILY Lactulose [Enulose] 30 ml PO QHS Baclofen 20 mg PO QID Pantoprazole Sodium [Protonix] 40 mg PO BID Gemfibrozil [Lopid] 600 mg PO BID Gabapentin [Neurontin] 600 mg PO TID Ferrous Sulfate [Iron] 325 mg PO BID Calcium Carbonate/Vitamin D3 [Caltrate w/ Vit D Tab (600mg/400IU)] 1 tab PO BID Valacyclovir HCl [Valtrex] 500 mg PO DAILY No Action Magnesium Oxide [Magox] 400 mg PO DAILY Oxycodone HCl [Roxicodone] 5 mg PO TID Zinc Sulfate 220 mg PO DAILY Abacavir/Dolutegravir/Lamivudi [Triumeq Tablet] 1 tab PO DAILY Trazodone HCl 100 mg PO QHS Methyl Salicylate/Menthol [Muscle Rub Cream] 2 gm TOP DIR PRN PRN Reason: Muscle Pain Cyanocobalamin (Vitamin B-12) [Vitamin B-12] 1,000 mcg PO FR Multivitamin [One Daily Essential] 1 tab PO DAILY Melatonin/Pyridoxine [Melatonin 3 mg Tablet] 1 tab PO QHS PRN PRN Reason: INSOMNIA O2 Device: Room Air Diet at Discharge: Regular, High Fiber Activity: As Tolerated Call Office For: Worsening Symptoms, Fever over 101 F Discontinue use of:: Alcohol, All Illegal Substances, All Types of Tobacco - DC Summary Notes Hospital Course Note:: Discharge summary on patient named REBECCA RICK admitted to [facility] on 09/08/16 by Evelin Lund MD. Date of discharge is []. Patient was initially brought [facility] emergency room [facility] facility for evaluation of diminished level responsiveness, confusion, cloudy urine gangrene use appearing toes and sacral decubitus. Please refer to the admission for further details. ED workup was undertaken patient was found to have UTI, sacral decubitus and dry toe gangrene. Patient was admitted to general medical floor, outpatient regimen for chronic medical conditions was continued. Treatment of IV antibiotics in the form of Flagyl and Levaquin was instituted. Third patient was seen consultation by Dr. Erika clemens who has found no indications for surgical intervention on the sacral ulcer or her toes. Patient received IV hydration, her mentation has improved and returned to baseline. By the time of discharge was fully alert awake oriented and interactive. Local wound care to sacral ulcer was provided by wound care team. Shaikh catheter was replaced, urine cultures and blood culture showed no growth. Nutritional support was provided. Patient was initially found dehydrated and renal failure ; her initial sodium was 148 and her creatinine was 1.6. IV hydration was provided, her renal function returned to baseline sodium has normalized as well. Patient was mildly anemic however did not meet criteria for blood transfusion and her hemoglobin has oscillated between 9 and 10. It was felt that by September 14 patient has reached maximum benefit of inpatient therapy and in clinically improved condition she has been discharged back to [facility] facility for [facility]-term care. Patient should follow by wound care team on regular daily basis, pressure off load from the sacrum is chavez. Total Time: 45 min . Code: 69799 (>30min.) - Physical Exam Vital Signs: Last Vital Signs Temp 99.0 F 09/14/16 04:14 Pulse 66 09/14/16 04:14 Resp 18 09/14/16 04:14 BP 117/51 L 09/14/16 04:14 Pulse Ox 100 09/14/16 04:14 Oxygen Pulse Oxygen Saturation 100 O2 Device Room Air Oxygen Flow Rate Fraction of Inspired Oxygen ( FIO2) Constitutional: No apparent distress, Alert Oriented to: Time, Person, Place - HEENT Head: Normal ( normocephalic) Eye: Normal (PERRL, EOMI, Sclera white) Oropharynx: Normal ENT EAC: Normal TMJ: Normal Nose: No Symptoms Reported (septum midline) - Respiratory/Cardiovascular Respiratory: Normal - CTA, Diminished, Rhonchi Cardiovascular: Normal, Systolic murmur - GI Auscultation: Normal (NABS) Palpation: Normal (Soft,No rebound or guarding, non distended) Tenderness: Non tender Cornejo's Sign: Negative Rectal Exam: Deferred, Heme positive stool Stool: Brown, Green - Exam Deferred: Yes - Musculoskeletal Back: Normal Extremities: Other (BILATERAL FEET WITH BLACK GANGRENE) - Integumentary Skin: Warm, Dry Lymphatics: Normal - Neurologic Memory Impaired: Normal, Unable to Test Motor Function: Abnormal Cranial Nerve: Normal Cerebellar: Unable to Test Mood Description: Anxious Thought: Coherent Perception: Normal
[2016-09-14 09:59] VITALS: TEMP 99
--- NOTE | 2016-09-14 10:23 | PCM.SURGRO ---
- Subjective Patient: Reports: No new complaints - Objective / Physical Exam Vital Signs: Temperature: 99.0 F (09/14/16 04:14) HR: 66 (09/14/16 04:14)RR: 18 (09/14/16 04: 14) BP: 117/51 (09/14/16 04:14)Pulse Ox: 100 (09/14/16 04:14) General: Alert Respiratory: Normal - CTA Cardiovascular: Regular rate and rhythm Gastrointestinal: Soft, Bowel Sounds. negative: Distended, Tender Extremities: Other (Palpable dorsalis pedis pulse bilaterally. Toes are less dusky.) - Assessment and Plan (1) Gangrene of toe Chronic I96 - GANGRENE, NOT ELSEWHERE CLASSIFIED Present on Admission: Yes Comment/Plan: Improving clinically. There is no indication for acute surgical intervention. (2) Decubitus ulcer of right ischial tuberosity region Chronic L89.319 - PRESSURE ULCER OF RIGHT BUTTOCK, UNSPECIFIED STAGE Present on Admission: Yes Comment/Plan: Local care to wound. Offloading is a priority as well.
== END 2016-09-14 11:29 | DRG 698 ==
LOC: ED 20:29 → MPS3 23:12
PROVIDERS: ADMIT Hospitalist; ATTEND Internal Medicine
PROC: 02HV33Z Insertion of Infusion Device into Superior Vena Cava, Percutaneous Approach (ICD-10-PCS; principal; 2016-09-09)
DX: T83.511A Infection and inflammatory reaction due to indwelling urethral catheter, initial encounter (principal); R40.20 Unspecified coma; I96 Gangrene, not elsewhere classified; K55.21 Angiodysplasia of colon with hemorrhage; R53.2 Functional quadriplegia; L89.893 Pressure ulcer of other site, stage 3; N19 Unspecified kidney failure; Y84.6 Urinary catheterization as the cause of abnormal reaction of the patient, or of later complication, without mention of misadventure at the time of the procedure; Y92.9 Unspecified place or not applicable; N39.0 Urinary tract infection, site not specified; R40.2433 Glasgow coma scale score 3-8, at hospital admission; R53.81 Other malaise; D64.9 Anemia, unspecified; E86.0 Dehydration; E78.00 Pure hypercholesterolemia, unspecified; K21.9 Gastro-esophageal reflux disease without esophagitis; Z21 Asymptomatic human immunodeficiency virus [HIV] infection status; Z88.0 Allergy status to penicillin; Z88.3 Allergy status to other anti-infective agents; Z79.82 Long term (current) use of aspirin
CPT/HCPCS: 36415; 36569; 70450; 71010; 72170; 76937; 77001; 80048; 80053; 80202; 80307; 81001; 82270; 83605; 84484; 85007; 85025; 85027; 85610; 85730; 86850; 86900; 86901; 87040; 87086; 93005; 96372; 97161; 99285; G0237; J0133; J1580; J1650; J1956; J2001; J3370; J3490; J7030; J7040; J7050; J7060; J7070